=== PATIENT | male | born 1935 ===

== ENCOUNTER 2020-06-08 12:50 | Inpatient (IN) ==
[2020-06-08] MEDS ORDERED: SODIUM CHLORIDE 0.9% 500 ML IV STA (14:23)
[2020-06-08 14:54] LABS: Basophils # 0.1 10*3/uL (0.0-0.2); Basophils % 0.3 % (0.0-0.8); Eosinophils # 0.3 10*3/uL (0.0-0.87); Eosinophils % 1.1 % (0.00-10.9); Hematocrit 35.2 VOL% (42.0-52.0); Hemoglobin 11.7 GM/DL (14.0-18.0); Immature Granulocytes % 0.5 %; Immature Granulocytes Absolute 0.11 #; Lymphocytes # 1.1 10*3/uL (1.4-4.0); Lymphocytes % 4.7 % (21.2-54.2); Mean Corpuscular HGB Conc 33.2 GM/DL (32-36); Mean Corpuscular Volume 92.4 FL (87-102); Mean Platelet Volume 9.1 FL (9.6-12.0); Monocytes % 3.3 % (1.7-12.7); Neutrophils % 90.1 % (38.7-73.9); Platelet Count 313 T/CUMM (130-400); Red Blood Count 3.81 MC/CUMM (3.8-5.5); Red Cell Distribution Width 14.8 % (9.3-17.3); White Blood Count 23.5 T/CUMM (4-12)
[2020-06-08 15:09] LABS: Albumin 2.6 G/DL (3.4-5.0); Bilirubin,Total 0.4 MG/DL (0.2-1.0); Calcium 8.6 MG/DL (8.5-10.1); Osmolality,Calculated 279.4 MOS/KG (273-304); Potassium 2.7 MMOL/L (3.5-5.1); Total Protein 6.5 G/DL (6.4-8.3)
[2020-06-08] MEDS ORDERED: cefTRIAXone 1,000 MG in SODIUM CHLORIDE 0.9% 100 ML IV STA (15:25)
[2020-06-08] MEDS ORDERED: AZITHROMYCIN 250 MG TABLET PO STA (15:25)
[2020-06-08] MEDS ORDERED: MAGNESIUM SULF RIDER 4 GM in PREMIX 1 EACH IV PRN (15:40)
[2020-06-08] MEDS ORDERED: MAGNESIUM SULF RIDER 2 GM in PREMIX 1 EACH IV PRN (15:40)
[2020-06-08] MEDS ORDERED: DEXTROSE 50% 25 GM/50 ML VIAL IV PRN (15:47)
[2020-06-08] MEDS ORDERED: DOCUSATE SODIUM 100 MG CAPSULE PO PRN (15:47)
[2020-06-08] MEDS ORDERED: GLUCAGON 1 MG VIAL IM PRN (15:47)
[2020-06-08] MEDS ORDERED: ACETAMINOPHEN 325 MG TABLET PO PRN (15:47)
[2020-06-08] MEDS ORDERED: ONDANSETRON 4 MG/2 ML VIAL IV PRN (15:47)
[2020-06-08] MEDS ORDERED: hydrALAZINE 20 MG/1 ML VIAL IV PRN (15:47)
[2020-06-08] MEDS ORDERED: AZITHROMYCIN INJ 500 MG in SODIUM CHLORIDE 0.9% 250 ML IV SCH (16:00)
[2020-06-08 16:09] LABS: % Iron Saturation 5.7 % (18-50); Ferritin 679.5 ng/ml (26-388); Thyroid Stimulating Hormone 1.25 uIU/ml (0.358-3.74)
[2020-06-08 16:34] LABS: Risk Ratio 1.96; VLDL CHOLESTEROL 9.8 MG/DL
[2020-06-08] MEDS ORDERED: INFLUENZA VIRUS VACCINE 0.5 ML SYRINGE IM ONE (17:44)
[2020-06-08] MEDS: SODIUM CHLOR 0.9% KCL 40 MEQ 40 MEQ/1,000 ML BAG IV SCH (18:13)
[2020-06-08 20:18] LABS: Band Neutrophils 4 % (0-10); Lymphocytes 2 % (20-55); Platelet Estimate Normal; Segmented Neutrophils 91 % (50-85); Total Cells Counted 100
[2020-06-08] MEDS: guaiFENesin/DM ER 600-30 MG TABLET PO SCH (20:47)
[2020-06-09 05:34] LABS: Basophils # 0.1 10*3/uL (0.0-0.2); Basophils % 0.4 % (0.0-0.8); Eosinophils # 1.5 10*3/uL (0.0-0.87); Eosinophils % 7.7 % (0.00-10.9); Hematocrit 33.5 VOL% (42.0-52.0); Hemoglobin 10.7 GM/DL (14.0-18.0); Immature Granulocytes % 0.6 %; Immature Granulocytes Absolute 0.11 #; Lymphocytes # 1.7 10*3/uL (1.4-4.0); Lymphocytes % 8.6 % (21.2-54.2); Mean Corpuscular HGB Conc 31.9 GM/DL (32-36); Mean Corpuscular Volume 94.4 FL (87-102); Mean Platelet Volume 9.7 FL (9.6-12.0); Monocytes % 4.1 % (1.7-12.7); Neutrophils % 78.6 % (38.7-73.9); Platelet Count 322 T/CUMM (130-400); Red Blood Count 3.55 MC/CUMM (3.8-5.5); Red Cell Distribution Width 14.8 % (9.3-17.3); White Blood Count 19.3 T/CUMM (4-12)
[2020-06-09 06:02] LABS: Calcium 8.4 MG/DL (8.5-10.1); Osmolality,Calculated 277.4 MOS/KG (273-304); Potassium 3.1 MMOL/L (3.5-5.1)
[2020-06-09 07:19] LABS: Bilirubin,Urine Negative (Negative); Blood, Urine Negative (Negative); Glucose,Urine (UA) Negative (Negative); Ketones,Urine Negative (Negative); Nitrite,Urine Negative (Negative); Protein,Urine Negative; RBC,Urine 1 /HPF (0-4); Squamous Epithelial Cell,Urine Occasional /HPF (0-10); Urine Appearance CLEAR (Clear); Urine Color Yellow (Yellow); Urine Specific Gravity 1.018 (1.001-1.035); Urine Urobilinogen < 2.0 EU/DL (0.2-1.0); WBC,Urine 1 /HPF (0-6)
[2020-06-09] MEDS ORDERED: FERRIC GLUCONATE COMPLEX 125 MG in SODIUM CHLORIDE 0.9% 100 ML IV ONE (09:00)
[2020-06-09] MEDS: NICOTINE 14 MG/24 HR PATCH TRANSDERM SCH (09:16)
[2020-06-09] MEDS: AZITHROMYCIN 250 MG TABLET PO SCH (09:16)
[2020-06-09] MEDS: PANTOPRAZOLE 40 MG TABLET PO SCH (09:16)
[2020-06-09] MEDS: guaiFENesin/DM ER 600-30 MG TABLET PO SCH ×2 (09:18→21:57)
[2020-06-09] MEDS: cefTRIAXone 1,000 MG in SYRINGE 1 EACH IV SCH (09:18)
[2020-06-09] MEDS: ALBUTEROL 1.25 MG/3 ML NEB RESP TX SCH ×2 (14:52→19:28)
[2020-06-09] MEDS: SODIUM CHLOR 0.9% KCL 40 MEQ 40 MEQ/1,000 ML BAG IV SCH ×2 (16:58→17:16)
[2020-06-10] MEDS: ALBUTEROL 1.25 MG/3 ML NEB RESP TX SCH ×4 (00:56→19:38)
[2020-06-10 06:03] LABS: Basophils % 0.3 % (0.0-0.8); Eosinophils # 1.4 10*3/uL (0.0-0.87); Eosinophils % 9.6 % (0.00-10.9); Hematocrit 32.5 VOL% (42.0-52.0); Hemoglobin 10.3 GM/DL (14.0-18.0); Immature Granulocytes % 0.8 %; Immature Granulocytes Absolute 0.11 #; Lymphocytes # 1.4 10*3/uL (1.4-4.0); Lymphocytes % 10.1 % (21.2-54.2); Mean Corpuscular HGB Conc 31.7 GM/DL (32-36); Mean Corpuscular Volume 95.3 FL (87-102); Mean Platelet Volume 9.5 FL (9.6-12.0); Monocytes % 4.5 % (1.7-12.7); Neutrophils % 74.7 % (38.7-73.9); Platelet Count 318 T/CUMM (130-400); Red Blood Count 3.41 MC/CUMM (3.8-5.5); Red Cell Distribution Width 14.8 % (9.3-17.3); White Blood Count 14.2 T/CUMM (4-12)
[2020-06-10 06:08] LABS: Calcium 8.2 MG/DL (8.5-10.1); Osmolality,Calculated 271.7 MOS/KG (273-304); Potassium 3.8 MMOL/L (3.5-5.1)
[2020-06-10] MEDS: SODIUM CHLOR 0.9% KCL 40 MEQ 40 MEQ/1,000 ML BAG IV SCH (06:28)
[2020-06-10] MEDS ORDERED: FUROSEMIDE 20 MG/2 ML VIAL IV ONE (09:30)
[2020-06-10] MEDS: cefTRIAXone 1,000 MG in SYRINGE 1 EACH IV SCH (09:33)
[2020-06-10] MEDS: MECLIZINE 25 MG TABLET PO SCH ×3 (10:03→21:09)
[2020-06-10] MEDS: TAMSULOSIN 0.4 MG CAPSULE PO SCH (10:03)
[2020-06-10] MEDS: ASPIRIN EC 325 MG TABLET PO SCH (10:03)
[2020-06-10] MEDS: FERROUS GLUCONATE 324 MG TABLET PO SCH (10:03)
[2020-06-10] MEDS: LORATADINE 10 MG TABLET PO SCH (10:03)
[2020-06-10] MEDS: PANTOPRAZOLE 40 MG TABLET PO SCH (10:04)
[2020-06-10] MEDS: ATORVASTATIN 40 MG TABLET PO SCH (10:04)
[2020-06-10] MEDS: MONTELUKAST 10 MG TABLET PO SCH (10:04)
[2020-06-10] MEDS: NICOTINE 14 MG/24 HR PATCH TRANSDERM SCH (10:04)
[2020-06-10] MEDS: guaiFENesin/DM ER 600-30 MG TABLET PO SCH ×2 (10:04→21:09)
[2020-06-10] MEDS: AZITHROMYCIN 250 MG TABLET PO SCH (10:05)
[2020-06-10] MEDS: GABAPENTIN 300 MG CAPSULE PO SCH (21:09)
[2020-06-10] MEDS: DONEPEZIL 10 MG TABLET PO SCH (21:09)
[2020-06-11] MEDS: ALBUTEROL 1.25 MG/3 ML NEB RESP TX SCH ×4 (00:17→19:57)
[2020-06-11 06:13] LABS: Basophils % 0.4 % (0.0-0.8); Eosinophils # 2.4 10*3/uL (0.0-0.87); Eosinophils % 21.2 % (0.00-10.9); Hematocrit 32.2 VOL% (42.0-52.0); Hemoglobin 10.7 GM/DL (14.0-18.0); Immature Granulocytes % 0.7 %; Immature Granulocytes Absolute 0.08 #; Lymphocytes # 1.8 10*3/uL (1.4-4.0); Lymphocytes % 15.9 % (21.2-54.2); Mean Corpuscular HGB Conc 33.2 GM/DL (32-36); Mean Corpuscular Volume 92.5 FL (87-102); Mean Platelet Volume 9.5 FL (9.6-12.0); Monocytes % 5.5 % (1.7-12.7); Neutrophils % 56.3 % (38.7-73.9); Platelet Count 331 T/CUMM (130-400); Red Blood Count 3.48 MC/CUMM (3.8-5.5); Red Cell Distribution Width 14.8 % (9.3-17.3); White Blood Count 11.2 T/CUMM (4-12)
[2020-06-11 06:35] LABS: Band Neutrophils 4 % (0-10); Eosinophils 24 % (0-10); Lymphocytes 12 % (20-55); Segmented Neutrophils 56 % (50-85); Total Cells Counted 100
[2020-06-11 06:36] LABS: Anisocytosis 1+; Burr Cells Few; Platelet Estimate Normal; Poikilocytosis Slight
[2020-06-11 06:42] LABS: Calcium 8.4 MG/DL (8.5-10.1); Osmolality,Calculated 274.5 MOS/KG (273-304); Potassium 3.4 MMOL/L (3.5-5.1)
[2020-06-11] MEDS ORDERED: POTASSIUM CHLORIDE 20 MEQ TABLET PO ONE (07:29)
[2020-06-11] MEDS: NICOTINE 14 MG/24 HR PATCH TRANSDERM SCH (09:29)
[2020-06-11] MEDS: ATORVASTATIN 40 MG TABLET PO SCH (09:30)
[2020-06-11] MEDS: PANTOPRAZOLE 40 MG TABLET PO SCH (09:30)
[2020-06-11] MEDS: TAMSULOSIN 0.4 MG CAPSULE PO SCH (09:30)
[2020-06-11] MEDS: LORATADINE 10 MG TABLET PO SCH (09:31)
[2020-06-11] MEDS: AZITHROMYCIN 250 MG TABLET PO SCH (09:31)
[2020-06-11] MEDS: cefTRIAXone 1,000 MG in SYRINGE 1 EACH IV SCH (09:31)
[2020-06-11] MEDS: FERROUS GLUCONATE 324 MG TABLET PO SCH (09:31)
[2020-06-11] MEDS: guaiFENesin/DM ER 600-30 MG TABLET PO SCH ×2 (09:31→20:26)
[2020-06-11] MEDS: MECLIZINE 25 MG TABLET PO SCH ×3 (09:32→20:26)
[2020-06-11] MEDS: MONTELUKAST 10 MG TABLET PO SCH (09:32)
[2020-06-11] MEDS: ASPIRIN EC 325 MG TABLET PO SCH (10:24)
[2020-06-11] MEDS: DONEPEZIL 10 MG TABLET PO SCH (20:26)
[2020-06-11] MEDS: GABAPENTIN 300 MG CAPSULE PO SCH (20:26)
[2020-06-12] MEDS: ALBUTEROL 1.25 MG/3 ML NEB RESP TX SCH ×3 (01:00→09:19)
[2020-06-12 07:46] LABS: Basophils % 0.4 % (0.0-0.8); Eosinophils # 2.3 10*3/uL (0.0-0.87); Eosinophils % 21.2 % (0.00-10.9); Hematocrit 34.4 VOL% (42.0-52.0); Hemoglobin 10.8 GM/DL (14.0-18.0); Immature Granulocytes % 0.7 %; Immature Granulocytes Absolute 0.08 #; Lymphocytes # 1.8 10*3/uL (1.4-4.0); Lymphocytes % 16.6 % (21.2-54.2); Mean Corpuscular HGB Conc 31.4 GM/DL (32-36); Mean Corpuscular Volume 96.1 FL (87-102); Mean Platelet Volume 9.7 FL (9.6-12.0); Monocytes % 5.9 % (1.7-12.7); Neutrophils % 55.2 % (38.7-73.9); Platelet Count 387 T/CUMM (130-400); Red Blood Count 3.58 MC/CUMM (3.8-5.5); Red Cell Distribution Width 14.8 % (9.3-17.3); White Blood Count 10.7 T/CUMM (4-12)
[2020-06-12 07:50] VITALS: BP 129/65
[2020-06-12 08:06] LABS: Calcium 8.3 MG/DL (8.5-10.1); Osmolality,Calculated 281.1 MOS/KG (273-304); Potassium 3.7 MMOL/L (3.5-5.1)
[2020-06-12 08:39] LABS: Anisocytosis 2+; Band Neutrophils 6 % (0-10); Burr Cells Few; Eosinophils 28 % (0-10); Lymphocytes 15 % (20-55); Macrocytosis Slight; Platelet Estimate Normal; Segmented Neutrophils 47 % (50-85); Total Cells Counted 100
[2020-06-12] MEDS ORDERED: CEFUROXIME 500 MG TABLET PO SCH (09:00)
[2020-06-12] MEDS: guaiFENesin/DM ER 600-30 MG TABLET PO SCH (09:18)
[2020-06-12] MEDS: ASPIRIN EC 325 MG TABLET PO SCH (09:18)
[2020-06-12] MEDS: NICOTINE 14 MG/24 HR PATCH TRANSDERM SCH (09:18)
[2020-06-12] MEDS: AZITHROMYCIN 250 MG TABLET PO SCH (09:19)
[2020-06-12] MEDS: ATORVASTATIN 40 MG TABLET PO SCH (09:19)
[2020-06-12] MEDS: MONTELUKAST 10 MG TABLET PO SCH (09:19)
[2020-06-12] MEDS: LORATADINE 10 MG TABLET PO SCH (09:19)
[2020-06-12] MEDS: MECLIZINE 25 MG TABLET PO SCH (09:19)
[2020-06-12] MEDS: FERROUS GLUCONATE 324 MG TABLET PO SCH (09:20)
[2020-06-12] MEDS: PANTOPRAZOLE 40 MG TABLET PO SCH (09:20)
[2020-06-12] MEDS: TAMSULOSIN 0.4 MG CAPSULE PO SCH (09:20)
== END 2020-06-12 11:38 | disposition home health service (06) | DRG 183 ==
LOC: N.ED 12:50 → N.5E 12:50
PROVIDERS: ADMIT Internal Medicine; ATTEND Internal Medicine
PROC: IRGDHTC (2020-06-08 16:20)